=== PATIENT | female | born 1965 | race African-American/Black ===

== ENCOUNTER 2017-01-04 10:27 | Emergency (ER) | payer OTHER ==
[2017-01-04 10:49] VITALS: TEMP 97.5; BMI 29.7
[2017-01-04] MEDS ORDERED: MECLIZINE HCL 25 MG TABLET (FP) PO ONE ×2 (11:09→13:06)
[2017-01-04] MEDS ORDERED: MECLIZINE HCL 25 MG TABLET (FP) ONE ×2 (11:16→13:18)
--- NOTE | 2017-01-04 11:25 | PDOC ---
Attending Attestation - HPI HPI: 01/04/17 11:30 51 y/o F with a PMHx of HIV, HTN, liver disease presents to the ED with positional dizziness today. She states it felt like the room was spinning and she felt off balance while trying to walk. Patient reports associated diaphoresis, nausea and vomiting x1. She also reports associated slight tingling on the left side of her head. Patient reports previous episode of vertigo when she was a teenager. Patient believes her last CD4 count was around 350, but unsure. Denies chest pain, SOB, headache. Denies fever, chills. Denies numbness, weakness. - Physicial Exam PE: 01/04/17 11:30 GENERAL: Awake, alert, and fully oriented, in no acute distress HEAD: No signs of trauma EYES: PERRLA, EOMI, sclera anicteric, conjunctiva clear ENT: Auricles normal inspection, hearing grossly normal, nares patent, oropharynx clear without exudates. Moist mucosa NECK: Normal ROM, supple, no lymphadenopathy, JVD, or masses LUNGS: Breath sounds equal, clear to auscultation bilaterally. No wheezes, and no crackles HEART: Regular rate and rhythm, normal S1 and S2, no murmurs, rubs or gallops ABDOMEN: Soft, nontender, normoactive bowel sounds. No guarding, no rebound. No masses EXTREMITIES: Normal range of motion, no edema. No clubbing or cyanosis. No cords, erythema, or tenderness NEUROLOGICAL: Cranial nerves II through XII grossly intact. Normal speech, normal gait SKIN: Warm, Dry, normal turgor, no rashes or lesions noted. - Medical Decision Making 01/04/17 11:30 Documentation prepared by Lashawn Bonilla, acting as medical staff coordinator for Roma Carlisle MD. <Lashawn Bonilla - Last Filed: 01/04/17 11:30> - Resident Resident Name: Job Frey - ED Attending Attestation I have performed the following: I have examined & evaluated the patient, The case was reviewed & discussed with the resident, I agree w/resident's findings & plan, Exceptions are as noted - Medical Decision Making Pt with prior history HIV on HAART presenting with vertiginous symptoms. No neuro deficits on exam. Initially improved with meclizine, then the dizziness returned and she was given additional dose as well as valium. Stable for DC home. <Roma Carlisle - Last Filed: 01/07/17 09:31>
--- NOTE | 2017-01-04 11:34 | PDOC ---
History of Present Illness - General Chief Complaint: Lightheaded Stated Complaint: DIZZY VOMITING Time Seen by Provider: 01/04/17 10:41 History Source: Patient Exam Limitations: No Limitations - History of Present Illness Initial Comments: 01/04/17 11:28 Patient is a 51F with HIV (Last CD4 count unknown, says it was normal, never on bactrim) and HTN here today complaining of nausea, vomiting and dizziness since waking up this morning. She also had associated episode of diaphoresis. She says that her dizziness gets worse whenever she moves suddenly. She was diagnosed with vertigo when she was a teenager and given meclizine. She had one episode of clear vomit. She denies chest pain, shortness of breath, headache, fevers and chills. Past History - Past Medical History Allergies/Adverse Reactions: Allergies Allergy/AdvReac Type Severity Reaction Status Date / Time No Known Allergies Allergy Verified 01/04/17 11:00 Home Medications: Ambulatory Orders Amlodipine Besylate 10 mg PO DAILY 01/04/17 Meclizine HCl [Antivert -] 25 mg PO DAILY #30 tablet 01/04/17 Multivitamin [One Daily] 1 each PO DAILY 01/04/17 HTN: Yes Liver Disease: Yes - Suicide/Smoking/Psychosocial Hx Smoking History: Current every day smoker Have you smoked in the past 12 months: Yes Number of Cigarettes Smoked Daily: 3 Information on smoking cessation initiated: No Hx Alcohol Use: No Drug/Substance Use Hx: No Substance Use Type: None Review of Systems - Review of Systems Comments:: 01/04/17 11:31 GENERAL/CONSTITUTIONAL: No fever or chills. No weakness. HEAD, EYES, EARS, NOSE AND THROAT: No change in vision.No sore throat. CARDIOVASCULAR: No chest pain or shortness of breath RESPIRATORY: No cough, wheezing, or hemoptysis. GASTROINTESTINAL: Positive for nausea and vomiting. Negative for diarrhea or constipation. GENITOURINARY: No dysuria, frequency, or change in urination. MUSCULOSKELETAL: No joint or muscle swelling or pain. No neck or back pain. SKIN: No rash NEUROLOGIC: No headache, loss of consciousness, or change in strength/sensation. HEMATOLOGIC/LYMPHATIC: No anemia, easy bleeding, or history of blood clots. ALLERGIC/IMMUNOLOGIC: No hives or skin allergy. *Physical Exam - Vital Signs Last Vital Signs Temp Pulse Resp BP Pulse Ox 97.5 F L 73 2 L 142/87 100 01/04/17 10:40 01/04/17 10:40 01/04/17 10:40 01/04/17 10:40 01/04/17 10:40 - Physical Exam Comments: 01/04/17 11:32 GENERAL: Awake, alert, and fully oriented, in no acute distress HEAD: No signs of trauma, normocephalic, atraumatic EYES: PERRLA, EOMI, sclera anicteric, conjunctiva clear, bilateral horizontal nystagmus with head movement. ENT: Auricles normal inspection, hearing grossly normal, nares patent, oropharynx clear without exudates. Moist mucosa LUNGS: No distress, speaks full sentences, clear to auscultation bilaterally HEART: Regular rate and rhythm, normal S1 and S2, no murmurs, rubs or gallops, peripheral pulses normal and equal bilaterally. ABDOMEN: Soft, nontender, normoactive bowel sounds. No guarding, no rebound. No masses EXTREMITIES: Normal inspection, Normal range of motion, no edema. No clubbing or cyanosis. NEUROLOGICAL: Cranial nerves II through XII grossly intact. Normal speech, no focal sensorimotor deficits SKIN: Warm, Dry, normal turgor, no rashes or lesions noted. ED Treatment Course - LABORATORY CBC & Chemistry Diagram: 01/04/17 11:49 01/04/17 11:49 - RADIOLOGY Radiology Studies Ordered: Category Date Time Status CHEST X-RAY PORTABLE* [RAD] Stat Radiology 01/04/17 11:09 Ordered - Medications Given in the ED: ED Medications Discontinued Medications Generic Name Dose Route Start Last Admin Trade Name Adali PRN Reason Stop Dose Admin Meclizine HCl 25 mg 01/04/17 11:09 01/04/17 11:19 Antivert - PO 01/04/17 11:10 25 mg ONCE ONE Administration Medical Decision Making - Medical Decision Making 01/04/17 11:32 Patient is a 51F with history of HIV and HTN here today complaining of dizziness with vomiting and diaphoresis. Vital signs stable. Physical exam is suggestive of BPPV, but will evaluate with cardiac cause of dizziness. Will evaluate with labs, ecg, and cxr. Will treat with meclizine. ECG shows normal sinus rhythm, normal rate, no st elevations, QTc 422. Normal ECG. 01/04/17 12:27 Laboratory Tests 01/04/17 11:49 WBC 9.2 Hgb 13.8 Hct 40.5 Plt Count 245 CBC is normal, CMP is reassuring, CK normal, Trop pending. 01/04/17 12:40 Laboratory Tests 01/04/17 11:49 Troponin I < 0.02 Trop neg. Will discharge with return precautions and PCP follow. Patient is much improved with meclizine. Will discharge with it as home medication. *DC/Admit/Observation/Transfer Diagnosis at time of Disposition: Vertigo - Discharge Dispostion Disposition: HOME Condition at time of disposition: Improved Admit: No - Prescriptions Prescriptions: Meclizine HCl [Antivert -] 25 mg PO DAILY #30 tablet - Referrals Referrals: STAFF,NOT ON [Primary Care Provider] - - Patient Instructions Printed Discharge Instructions: DI for Vertigo Additional Instructions: Please follow up with your primary care physician as we discussed. I'm glad that you're feeling better. -Dr Frey - Post Discharge Activity Work/School Note: Back to Work
[2017-01-04 11:58] LABS: BASOPHIL 0.7 % (0-2.0); EOSINOPHIL 0.3 % (0-4.5); MCH 31.3 pg (25.7-33.7); MEAN CELL VOLUME 92.1 fl (80-96); MEAN PLT VOLUME 8.3 fl (7.5-11.1); NEUTROPHILS 80.9 % (42.8-82.8); PLATELET COUNT 245 K/MM3 (134-434); RDW 13.3 % (11.6-15.6); WHITE BLOOD COUNT 9.2 K/mm3 (4.0-10.0)
[2017-01-04 12:11] LABS: INR 0.91 (0.82-1.09)
[2017-01-04 12:24] LABS: ALBUMIN 4.2 g/dl (3.4-5.0); ALK PHOS 213 U/L (45-117); ANION GAP 7 (8-16); BILIRUBIN,TOTAL 0.4 mg/dL (0.2-1.0); CALCIUM 10.2 mg/dL (8.5-10.1); CO2 28 mmol/L (21-32); CPK 83 IU/L (26-192); CREATININE 0.7 mg/dL (0.55-1.02); GLUCOSE,RANDOM 104 mg/dL (74-106); MAGNESIUM 2.4 mg/dL (1.8-2.4); SGOT/AST 20 U/L (15-37); SGPT/ALT 24 U/L (12-78); TOT PROT 8.3 g/dl (6.4-8.2)
[2017-01-04 12:26] LABS: TROPONIN I < 0.02 ng/ml (0.00-0.05)
[2017-01-04] MEDS ORDERED: ONDANSETRON *ODT* 4 MG TABLET SL ONE (13:06)
[2017-01-04] MEDS ORDERED: ONDANSETRON *ODT* 4 MG TABLET ONE (13:19)
[2017-01-04] MEDS ORDERED: diazePAM 5 MG TABLET PO ONE (14:00)
[2017-01-04] MEDS ORDERED: diazePAM 5 MG TABLET ONE (14:05)
[2017-01-04 14:11] VITALS: BP 133/69; PULSE 77
--- NOTE | 2017-01-04 20:41 | EKG ---
Test Reason : Blood Pressure : / mmHG Vent. Rate : 065 BPM Atrial Rate : 065 BPM P-R Int : 174 ms QRS Dur : 094 ms QT Int : 406 ms P-R-T Axes : 001 018 019 degrees QTc Int : 422 ms NORMAL SINUS RHYTHM NORMAL ECG WHEN COMPARED WITH ECG OF 12-OCT-2002 06:29, VENT. RATE HAS DECREASED BY 35 BPM NON-SPECIFIC CHANGE IN ST SEGMENT IN INFERIOR LEADS ST NO LONGER DEPRESSED IN ANTEROLATERAL LEADS T WAVE INVERSION NO LONGER EVIDENT IN INFERIOR LEADS T WAVE INVERSION NO LONGER EVIDENT IN ANTEROLATERAL LEADS REPEAT EKG IF CLINICALLY INDICATED Confirmed by DIMAS SANCHEZ MD ([id number]) on 01/04/2017 8:41:25 PM Referred By: Confirmed By:DIMAS SANCHEZ MD
== END 2017-01-04 14:11 | disposition home or self-care (01) ==
LOC: JER 10:27
DX: R42 Dizziness and giddiness (principal); I10 Essential (primary) hypertension; K76.9 Liver disease, unspecified; Z21 Asymptomatic human immunodeficiency virus [HIV] infection status; F17.210 Nicotine dependence, cigarettes, uncomplicated
CPT/HCPCS: 36415; 71010-TC; 80053; 83735; 84484; 85025; 85610; 93005; 93010; 99285-25

== ENCOUNTER 2022-01-27 19:19 | Observation (INO) | payer OTHER ==
[2022-01-27] MEDS ORDERED: ONDANSETRON 4 MG/2 ML VIAL IVPUSH ONE ×2 (19:40→23:07)
[2022-01-27] MEDS ORDERED: ACETAMINOPHEN 1000 MG/100 ML BAG IVPB ONE (19:40)
[2022-01-27] MEDS ORDERED: FAMOTIDINE 20 MG/50 ML IVPB 20 MG/50 ML MG IVPB ONE ×2 (19:40→19:48)
[2022-01-27] MEDS ORDERED: MAG HYDROX/AL HYDROX/SIMETH -MYLANTA- ORAL SUSPENSION PO ONE (19:41)
[2022-01-27] MEDS ORDERED: LIDOCAINE VISCOUS 2% ORAL/TOP 15 ML UNIT-DOSE CUP MM ONE (19:41)
[2022-01-27] MEDS ORDERED: SODIUM CHLORIDE 0.9% 500 ML INFUS.BAG IV ONE (19:46)
[2022-01-27] MEDS ORDERED: MAG HYDROX/AL HYDROX/SIMETH 30 ML UNIT-DOSE CUP ONE (19:48)
[2022-01-27] MEDS ORDERED: LIDOCAINE VISCOUS 2% ORAL/TOP 15 ML UNIT-DOSE CUP ONE (19:48)
[2022-01-27] MEDS ORDERED: ACETAMINOPHEN INJECTION 100 ML IVPB ONE (19:48)
[2022-01-27] MEDS ORDERED: ONDANSETRON 4 MG/2 ML VIAL ONE ×2 (19:48→23:10)
[2022-01-27 20:51] LABS: BASO % 0.5 % (0-2.0); EOS % 0.1 % (0-4.5); HEMATOCRIT 39.6 % (32.4-45.2); HEMOGLOBIN 13.8 GM/dL (10.7-15.3); LYMPH % 18.2 % (8-40); MCHC 34.9 g/dl (32.0-36.0); MEAN CELL VOLUME 97.4 fl (80-96); MEAN PLT VOLUME 7.9 fl (7.5-11.1); MONO % 4.7 % (3.8-10.2); NEUT % 76.5 % (42.8-82.8); PLATELET COUNT 292 10^3/uL (134-434); RBC 4.07 M/mm3 (3.60-5.2); RDW 12.8 % (11.6-15.6); WHITE BLOOD COUNT 10.8 K/mm3 (4.0-10.0)
[2022-01-27] MEDS ORDERED: METOCLOPRAMIDE HCL INJECTION 10 MG/2 ML VIAL IVPB ONE (21:38)
[2022-01-27] MEDS ORDERED: METOCLOPRAMIDE HCL INJECTION 10 MG/2 ML VIAL ONE ×2 (21:41→23:10)
[2022-01-27 21:44] LABS: ALBUMIN 5.1 g/dl (3.4-5.0); CALCIUM 11.6 mg/dL (8.5-10.1)
[2022-01-27 21:46] LABS: BLOOD UREA NITROGEN 49.9 mg/dL (7-18)
[2022-01-27 21:50] LABS: CREATININE 1.7 mg/dL (0.55-1.3); TOT PROT 9.4 g/dl (6.4-8.2)
[2022-01-27 21:52] LABS: BILIRUBIN,TOTAL 0.9 mg/dL (0.2-1)
[2022-01-27] MEDS ORDERED: SODIUM CHLORIDE 1,000 ML IV STA (22:07)
[2022-01-27] MEDS ORDERED: METOCLOPRAMIDE HCL INJECTION 10 MG/2 ML VIAL IVPUSH ONE (23:07)
[2022-01-28] MEDS: SODIUM CHLORIDE 1,000 ML IV SCH ×2 (06:44→21:25)
[2022-01-28] MEDS: INSULIN SLIDING SCALE (NOVOLOG) 1 VIAL SQ SCH ×4 (06:50→21:23)
[2022-01-28] MEDS ORDERED: METOCLOPRAMIDE HCL INJECTION 10 MG/2 ML VIAL IVPUSH PRN (08:00)
[2022-01-28 08:08] VITALS: BMI 25.9
[2022-01-28] MEDS ORDERED: ONDANSETRON 4 MG/2 ML VIAL IVPUSH PRN (11:00)
[2022-01-28 11:07] LABS: BASO % 0.4 % (0-2.0); EOS % 0.3 % (0-4.5); HEMATOCRIT 33.5 % (32.4-45.2); HEMOGLOBIN 11.7 GM/dL (10.7-15.3); LYMPH % 29.6 % (8-40); MCH 34.3 pg (25.7-33.7); MCHC 34.9 g/dl (32.0-36.0); MEAN CELL VOLUME 98.5 fl (80-96); MEAN PLT VOLUME 7.9 fl (7.5-11.1); MONO % 9.1 % (3.8-10.2); NEUT % 60.6 % (42.8-82.8); PLATELET COUNT 244 10^3/uL (134-434); RDW 12.9 % (11.6-15.6); WHITE BLOOD COUNT 10.4 K/mm3 (4.0-10.0)
[2022-01-28 11:23] LABS: BLOOD UREA NITROGEN 26.1 mg/dL (7-18); CALCIUM 10.3 mg/dL (8.5-10.1); MAGNESIUM 2.7 mg/dL (1.8-2.4)
[2022-01-28 11:26] LABS: CREATININE 1.2 mg/dL (0.55-1.3); PHOSPHOROUS 1.6 mg/dL (2.5-4.9)
[2022-01-28 11:28] LABS: BILIRUBIN,TOTAL 0.7 mg/dL (0.2-1)
[2022-01-28 11:31] LABS: ALBUMIN 3.6 g/dl (3.4-5.0); TOT PROT 7.2 g/dl (6.4-8.2)
[2022-01-28] MEDS: HEPARIN NA (PORCINE) 5,000 UNITS/ML 1ML VIAL SQ SCH (18:02)
[2022-01-29] MEDS: HEPARIN NA (PORCINE) 5,000 UNITS/ML 1ML VIAL SQ SCH ×3 (00:32→14:27)
[2022-01-29] MEDS: INSULIN SLIDING SCALE (NOVOLOG) 1 VIAL SQ SCH ×3 (06:32→17:12)
[2022-01-29] MEDS: SODIUM CHLORIDE 1,000 ML IV SCH (09:23)
[2022-01-29 11:47] LABS: BASO % 0.6 % (0-2.0); EOS % 0.8 % (0-4.5); HEMATOCRIT 32.7 % (32.4-45.2); LYMPH % 42.3 % (8-40); MCH 33.3 pg (25.7-33.7); MCHC 33.8 g/dl (32.0-36.0); MEAN CELL VOLUME 98.5 fl (80-96); MEAN PLT VOLUME 8.3 fl (7.5-11.1); NEUT % 49.3 % (42.8-82.8); PLATELET COUNT 245 10^3/uL (134-434); RBC 3.32 M/mm3 (3.60-5.2); RDW 12.8 % (11.6-15.6)
[2022-01-29 12:18] LABS: CALCIUM 10.2 mg/dL (8.5-10.1)
[2022-01-29 12:20] LABS: ALBUMIN 3.6 g/dl (3.4-5.0)
[2022-01-29 12:22] LABS: BILIRUBIN,TOTAL 0.7 mg/dL (0.2-1); CREATININE 0.9 mg/dL (0.55-1.3)
[2022-01-29 12:24] LABS: TOT PROT 6.6 g/dl (6.4-8.2)
[2022-01-29] MEDS ORDERED: ACETAMINOPHEN 500 MG TABLET (FP) PO ONE (15:32)
[2022-01-29 16:37] VITALS: BP 131/78; PULSE 68; RESP 20; TEMP 98.1
== END 2022-01-29 17:58 | disposition home or self-care (01) ==
LOC: JER 19:19 → JERBED 01-28 00:13 → INTOOBSV 01-28 00:13 → UNDOADMOB 01-28 00:13 → JERBED 01-28 05:11 → J5S 01-28 05:11 → JERBED 01-28 13:57 → J5S 01-28 13:57
PROVIDERS: ADMIT Internal Medicine
PROC: 3E033NZ Introduction of Analgesics, Hypnotics, Sedatives into Peripheral Vein, Percutaneous Approach (ICD-10-PCS; principal; 2022-01-28)
PROC: 3E033GC Introduction of Other Therapeutic Substance into Peripheral Vein, Percutaneous Approach (ICD-10-PCS; 2022-01-28)
PROC: 3E0337Z Introduction of Electrolytic and Water Balance Substance into Peripheral Vein, Percutaneous Approach (ICD-10-PCS; 2022-01-28)
PROC: 3E013GC Introduction of Other Therapeutic Substance into Subcutaneous Tissue, Percutaneous Approach (ICD-10-PCS; 2022-01-28)
DX: K52.9 Noninfective gastroenteritis and colitis, unspecified (principal); E86.0 Dehydration; N17.9 Acute kidney failure, unspecified; R11.2 Nausea with vomiting, unspecified; Z21 Asymptomatic human immunodeficiency virus [HIV] infection status; I10 Essential (primary) hypertension; F17.200 Nicotine dependence, unspecified, uncomplicated; E83.52 Hypercalcemia; E83.31 Familial hypophosphatemia; D72.829 Elevated white blood cell count, unspecified; R63.8 Other symptoms and signs concerning food and fluid intake
CPT/HCPCS: 0241U-QW; 36415; 71045-TC-FY; 74176-TC; 76775-TC; 80053; 82310; 82330; 82550; 82553; 82728; 82962; 83036; 83540; 83550; 83690; 83735; 84100; 84484; 85025; 86359; 86360; 87536; 93005; 93010; 96361; 96365; 96372; 96375; 96376; 99285-25; G0378; J1644

== ENCOUNTER 2022-03-14 12:51 | Observation (INO) | payer OTHER ==
[2022-03-14 12:56] VITALS: BMI 27.8
[2022-03-14 14:28] LABS: BASO % 0.7 % (0-2.0); EOS % 1.7 % (0-4.5); HEMATOCRIT 39.6 % (32.4-45.2); HEMOGLOBIN 13.2 GM/dL (10.7-15.3); LYMPH % 23.9 % (8-40); MCH 32.4 pg (25.7-33.7); MCHC 33.3 g/dl (32.0-36.0); MEAN CELL VOLUME 97.3 fl (80-96); MEAN PLT VOLUME 7.9 fl (7.5-11.1); MONO % 4.6 % (3.8-10.2); NEUT % 69.1 % (42.8-82.8); PLATELET COUNT 314 10^3/uL (134-434); RBC 4.07 M/mm3 (3.60-5.2); RDW 12.8 % (11.6-15.6)
[2022-03-14 14:48] LABS: ALBUMIN 4.2 g/dl (3.4-5.0); CALCIUM 11.5 mg/dL (8.5-10.1); MAGNESIUM 2.2 mg/dL (1.8-2.4)
[2022-03-14 14:51] LABS: CREATININE 0.9 mg/dL (0.55-1.3)
[2022-03-14 14:52] LABS: PHOSPHOROUS 2.6 mg/dL (2.5-4.9)
[2022-03-14 14:53] LABS: BILIRUBIN,TOTAL 0.4 mg/dL (0.2-1); TOT PROT 8.1 g/dl (6.4-8.2)
[2022-03-14] MEDS: SODIUM CHLORIDE 1,000 ML IV SCH (18:40)
[2022-03-14] MEDS ORDERED: diazePAM 5 MG TABLET PO ONE (18:40)
[2022-03-14] MEDS ORDERED: diazePAM 2 MG TABLET ONE ×2 (18:48→18:50)
[2022-03-14] MEDS ORDERED: ATORVASTATIN CA 80 MG TABLET (FP) ONE (22:03)
[2022-03-14] MEDS: ATORVASTATIN CA 80 MG TABLET (FP) PO SCH (22:33)
[2022-03-15 09:42] LABS: BASO % 0.6 % (0-2.0); EOS % 2.8 % (0-4.5); HEMOGLOBIN 12.5 GM/dL (10.7-15.3); LYMPH % 31.1 % (8-40); MCH 32.5 pg (25.7-33.7); MCHC 33.6 g/dl (32.0-36.0); MEAN CELL VOLUME 96.6 fl (80-96); MEAN PLT VOLUME 7.9 fl (7.5-11.1); MONO % 6.3 % (3.8-10.2); NEUT % 59.2 % (42.8-82.8); PLATELET COUNT 301 10^3/uL (134-434); RBC 3.83 M/mm3 (3.60-5.2); RDW 12.8 % (11.6-15.6); WHITE BLOOD COUNT 7.7 K/mm3 (4.0-10.0)
[2022-03-15] MEDS ORDERED: amLODIPine BESYLATE 10 MG TABLET (FP) PO SCH (10:00)
[2022-03-15 10:04] LABS: ALBUMIN 3.9 g/dl (3.4-5.0); CALCIUM 10.9 mg/dL (8.5-10.1)
[2022-03-15 10:05] LABS: BLOOD UREA NITROGEN 14.1 mg/dL (7-18)
[2022-03-15 10:08] LABS: CREATININE 0.9 mg/dL (0.55-1.3)
[2022-03-15 10:09] LABS: TOT PROT 7.4 g/dl (6.4-8.2)
[2022-03-15] MEDS ORDERED: VALSARTAN 80 MG TABLET ONE (10:19)
[2022-03-15] MEDS ORDERED: ENOXAPARIN NA (PORCINE) 40 MG/0.4 ML DISP.SYRIN SQ ONE (10:19)
[2022-03-15] MEDS: VALSARTAN 40 MG TABLET PO SCH (10:34)
[2022-03-15] MEDS: ENOXAPARIN NA (PORCINE) 40 MG/0.4 ML DISP.SYRIN SQ SCH (10:34)
[2022-03-15] MEDS ORDERED: MIDAZOLAM HCL 2 MG/2 ML SINGLE DOSE VIAL IVPUSH ONE (10:42)
[2022-03-15] MEDS ORDERED: MIDAZOLAM HCL 2 MG/2 ML SINGLE DOSE VIAL ONE (10:56)
[2022-03-15 11:19] LABS: BILIRUBIN,TOTAL 0.5 mg/dL (0.2-1)
[2022-03-15] MEDS ORDERED: PATIENT'S OWN MEDICATION (NON-FORMULARY) (Darunavir/Cob/Emtri/Tenof Alaf 1 EACH Tablet) SCH (15:30)
[2022-03-15] MEDS ORDERED: HYDROCHLOROTHIAZIDE 25 MG TABLET (FP) ONE (19:39)
[2022-03-15] MEDS ORDERED: ASPIRIN 81 MG CHEWABLE TABLETS ONE (19:39)
[2022-03-15] MEDS: SODIUM CHLORIDE 1,000 ML IV SCH (19:43)
[2022-03-15] MEDS: HYDROCHLOROTHIAZIDE 12.5 MG CAPSULE (FP) PO SCH (19:43)
[2022-03-15] MEDS: ASPIRIN 81 MG CHEWABLE TABLETS PO SCH (19:43)
[2022-03-15] MEDS ORDERED: CYANOCOBALAMIN (VITAMIN B-12) 100 MCG TABLET PO SCH (22:00)
[2022-03-15] MEDS ORDERED: ATORVASTATIN CA 80 MG TABLET (FP) ONE (22:58)
[2022-03-15] MEDS: ATORVASTATIN CA 80 MG TABLET (FP) PO SCH (23:09)
[2022-03-16 01:54] VITALS: PULSE 75
[2022-03-16 07:52] VITALS: BP 124/76; RESP 14; TEMP 98
[2022-03-16 08:57] LABS: EOS % 3.1 % (0-4.5); HEMOGLOBIN 12.4 GM/dL (10.7-15.3); LYMPH % 32.2 % (8-40); MCH 32.6 pg (25.7-33.7); MCHC 33.4 g/dl (32.0-36.0); MEAN CELL VOLUME 97.4 fl (80-96); MEAN PLT VOLUME 8.5 fl (7.5-11.1); MONO % 7.9 % (3.8-10.2); NEUT % 55.8 % (42.8-82.8); PLATELET COUNT 267 10^3/uL (134-434); RDW 12.6 % (11.6-15.6); WHITE BLOOD COUNT 8.9 K/mm3 (4.0-10.0)
[2022-03-16 09:19] LABS: BLOOD UREA NITROGEN 19.2 mg/dL (7-18); CALCIUM 10.6 mg/dL (8.5-10.1)
[2022-03-16 09:22] LABS: CREATININE 1.1 mg/dL (0.55-1.3); PHOSPHOROUS 3.6 mg/dL (2.5-4.9)
[2022-03-16] MEDS ORDERED: VALSARTAN 80 MG TABLET ONE (10:06)
[2022-03-16] MEDS ORDERED: HYDROCHLOROTHIAZIDE 25 MG TABLET (FP) ONE (10:06)
[2022-03-16] MEDS ORDERED: ASPIRIN 81 MG CHEWABLE TABLETS ONE (10:06)
[2022-03-16] MEDS ORDERED: ENOXAPARIN NA (PORCINE) 40 MG/0.4 ML DISP.SYRIN SQ ONE (10:07)
[2022-03-16] MEDS: VALSARTAN 40 MG TABLET PO SCH (10:07)
[2022-03-16] MEDS: ASPIRIN 81 MG CHEWABLE TABLETS PO SCH (10:07)
[2022-03-16] MEDS: HYDROCHLOROTHIAZIDE 12.5 MG CAPSULE (FP) PO SCH (10:08)
[2022-03-16] MEDS: ENOXAPARIN NA (PORCINE) 40 MG/0.4 ML DISP.SYRIN SQ SCH (10:08)
== END 2022-03-16 14:00 | disposition home or self-care (01) ==
LOC: JER 12:51 → JERBED 17:26
PROVIDERS: ADMIT Internal Medicine; ATTEND Internal Medicine
PROC: 3E023GC Introduction of Other Therapeutic Substance into Muscle, Percutaneous Approach (ICD-10-PCS; principal; 2022-03-14)
PROC: 3E033NZ Introduction of Analgesics, Hypnotics, Sedatives into Peripheral Vein, Percutaneous Approach (ICD-10-PCS; 2022-03-14)
PROC: 3E0337Z Introduction of Electrolytic and Water Balance Substance into Peripheral Vein, Percutaneous Approach (ICD-10-PCS; 2022-03-14)
DX: R20.0 Anesthesia of skin (principal); R20.2 Paresthesia of skin; B20 Human immunodeficiency virus [HIV] disease; E83.52 Hypercalcemia; I10 Essential (primary) hypertension; R42 Dizziness and giddiness; E53.8 Deficiency of other specified B group vitamins; B02.9 Zoster without complications; Z72.0 Tobacco use; R63.0 Anorexia
CPT/HCPCS: 36415; 70450-TC; 70552-TC; 80048; 80053; 80061; 82607; 83735; 84100; 84443; 84484; 85025; 93005; 93010; 93306-TC; 93880-TC; 99285-25; C9803-CS; G0378; U0003; U0005

== ENCOUNTER 2022-08-10 08:35 | Emergency (ER) | payer OTHER ==
[2022-08-10 09:34] VITALS: BMI 28.1
[2022-08-10 09:47] LABS: BASO % 0.7 % (0-2.0); HEMATOCRIT 36.3 % (32.4-45.2); HEMOGLOBIN 12.9 GM/dL (10.7-15.3); LYMPH % 17.6 % (8-40); MCH 33.8 pg (25.7-33.7); MCHC 35.4 g/dl (32.0-36.0); MEAN CELL VOLUME 95.4 fl (80-96); MONO % 5.5 % (3.8-10.2); NEUT % 75.2 % (42.8-82.8); PLATELET COUNT 309 10^3/uL (134-434); RBC 3.81 M/mm3 (3.60-5.2); RDW 12.8 % (11.6-15.6); WHITE BLOOD COUNT 8.9 K/mm3 (4.0-10.0)
[2022-08-10 10:08] LABS: ALBUMIN 4.3 g/dl (3.4-5.0); BLOOD UREA NITROGEN 18.8 mg/dL (7-18); CALCIUM 10.4 mg/dL (8.5-10.1); MAGNESIUM 2.3 mg/dL (1.8-2.4)
[2022-08-10 10:11] LABS: CREATININE 1.4 mg/dL (0.55-1.3); PHOSPHOROUS 3.5 mg/dL (2.5-4.9)
[2022-08-10 10:12] LABS: BILIRUBIN,TOTAL 0.4 mg/dL (0.2-1)
[2022-08-10 10:13] LABS: TOT PROT 8.2 g/dl (6.4-8.2)
[2022-08-10 10:37] LABS: EPI CELLS 32 /uL (0-25.1); HYALINE CASTS 21 /uL (0-3.1); PH,URINE 5.5 (5.0-8.0); URINE APPEARANCE CLOUDY; URINE BACTERIA 78 /uL (0-1359); URINE BILIRUBIN 1+ (NEGATIVE); URINE COLOR DK YELLOW; URINE GLUCOSE (UA) NEGATIVE (NEGATIVE); URINE KETONE TRACE (NEGATIVE); URINE LEUK ESTERASE NEGATIVE (NEGATIVE); URINE NITRITE NEGATIVE (NEGATIVE); URINE PROTEIN 1+ (NEGATIVE); URINE RBC 7 /uL (0-23.9); URINE WBC 22 /uL (0-25.8)
[2022-08-10] MEDS ORDERED: SODIUM CHLORIDE 0.9% 500 ML INFUS.BAG IV ONE (12:35)
[2022-08-10 14:24] LABS: CALCIUM 9.4 mg/dL (8.5-10.1)
[2022-08-10 14:25] LABS: BLOOD UREA NITROGEN 17.8 mg/dL (7-18)
[2022-08-10 14:28] LABS: CREATININE 1.2 mg/dL (0.55-1.3)
[2022-08-10 14:55] VITALS: BP 134/77; PULSE 72; RESP 17; TEMP 98
== END 2022-08-10 14:54 | disposition home or self-care (01) ==
LOC: JER 08:35
DX: K59.00 Constipation, unspecified (principal); R10.32 Left lower quadrant pain
CPT/HCPCS: 36415; 74176-TC; 80048; 80053; 81003; 82330; 83735; 84100; 84439; 84443; 85025; 87086; 93005; 93010; 99285-25

== ENCOUNTER 2024-09-06 09:15 | Emergency (ER) | payer OTHER ==
[2024-09-06 09:30] VITALS: BP 132/62; PULSE 71; RESP 18; TEMP 98; BMI 27.4
== END 2024-09-06 10:27 | disposition home or self-care (01) ==
LOC: JER 09:15
DX: R21 Rash and other nonspecific skin eruption (principal); M79.605 Pain in left leg; R23.4 Changes in skin texture
CPT/HCPCS: 99283-25

== ENCOUNTER 2024-09-27 05:48 | Day surgery (SDC) | payer OTHER ==
[2024-09-27] MEDS ORDERED: ACETAMINOPHEN 500 MG TABLET (FP) PO PRN (09:03)
[2024-09-27 13:23] VITALS: TEMP 98.4
[2024-09-27 13:25] VITALS: RESP 18
[2024-09-27] MEDS ORDERED: LIDOCAINE HCL/PF 1% SDV 5ML VIAL ONE (14:22)
[2024-09-27] MEDS ORDERED: SODIUM CHLORIDE 0.9% P/F 10 ML VIAL IJ ONE (14:52)
[2024-09-27] MEDS: LIDOCAINE HCL 1% PRESERVATIVE FREE - 30ML VIAL IJ ONE ×2 (14:59)
[2024-09-27] MEDS: IOHEXOL 180 MG/1 ML ML IJ ONE ×2 (15:01)
[2024-09-27] MEDS: DEXAMETHASONE SOD PHOSPHATE 10 MG/1 ML VIAL IM ONE ×2 (15:02)
[2024-09-27 15:46] VITALS: BP 133/83; PULSE 91
== END 2024-09-27 15:25 | disposition home or self-care (01) ==
LOC: JASU-SURG 05:48
PROVIDERS: ATTEND Pain Medicine Pain Medicine
PROC: 3E0R3BZ Introduction of Anesthetic Agent into Spinal Canal, Percutaneous Approach (ICD-10-PCS; 2024-09-27)
PROC: 3E0R33Z Introduction of Anti-inflammatory into Spinal Canal, Percutaneous Approach (ICD-10-PCS; principal; 2024-09-27 14:30)
DX: M54.16 Radiculopathy, lumbar region (principal)
CPT/HCPCS: 76000-TC-FY; J1100